=== PATIENT | male | born 1970 | race Two or more races ===

== ENCOUNTER 2021-04-10 19:22 | Emergency (ER) | payer OTHER ==
[~2021-04-10] VITALS: Ht 165.1 cm; Wt 63.6 kg
[~2021-04-10 19:22] MED LIST: ASPI-825 PO
[2021-04-10 19:53] VITALS: BP 121/88
== END 2021-04-10 20:03 | disposition home or self-care (01) ==
LOC: EMS 19:26
DX: H92.03 Otalgia, bilateral (principal)
CPT/HCPCS: 99281; Z7502